=== PATIENT | male | born 1990 | race African-American/Black ===

== ENCOUNTER 2018-07-23 05:10 | Day surgery (SDC) | payer OTHER ==
[~2018-07-23] VITALS: Ht 170.2 cm; Wt 60.3 kg
[2018-07-23] VITALS (10 sets, daily range): BP systolic 96–140; BP diastolic 54–89
[~2018-07-23 05:10] MED LIST: ACETAMINOPHEN325 M1 ORAL
[2018-07-23] MEDS ORDERED: ceFAZolin 1gm IVPB IVPB ONE ×2 (06:00)
[2018-07-23] MEDS ORDERED: celeBREX 200mg Cap **SURGERY PATIENTS ONLY ORAL ONE (06:00)
[2018-07-23] MEDS ORDERED: oxyCONTIN 20mg tab ORAL ONE (06:00)
[2018-07-23] MEDS ORDERED: LR 1000ml 1,000 ML IVLG SCH (07:19)
--- NOTE | 2018-07-23 07:19 | Anethesia Preoperative Eval ---
Anesthesia Pre-op PMH/ROS General Date of Evaluation: Jul 23, 2018 Anesthesiologist: Kofi ASA Score: ASA 2 Mallampati Score Class I : Soft palate, uvula, fauces, pillars visible Class II: Soft palate, uvula, fauces visible Class III: Soft palate, base of uvula visible Class IV: Only hard plate visible Mallampati Classification: Class II Surgeon: Sher Diagnosis: Right knee derangement Surgical Procedure: Right knee arthrosocpy, possible ACL repair Anesthesia History: none Family History: no anesthesia problems Allergies: Coded Allergies: No Known Allergies (Unverified , 07/22/18) Medications: see eMAR Patient NPO?: Yes NPO Date: Jul 22, 2018 NPO Time: 22:00 Past Medical History Cardiovascular: Denies: HTN, CAD, [place], valve dz, arrhythmia, other Pulmonary: Denies: asthma, COPD, WAYNE, other Gastrointestinal/Genitourinary: Denies: GERD, CRI, ESRD, other Neurologic/Psychiatric: Reports: depression/anxiety - panic attack this morning ; Denies: dementia, CVA, TIA, other Endocrine: Denies: DM, hypothyroidism, steroids, other HEENT: Denies: cataract (L), cataract (R), glaucoma, MENOMINEE (L), MENOMINEE (R), other Hematology/Immune: Denies: anemia, DVT, bleeding disorder, other Musculoskeletal/Integumentary: Denies: OA, RA, DJD, DDD, edema, other PSxH Narrative: Denies Anesthesia Pre-op Phys. Exam Physician Exam Last Vital Signs Date Time Temp Pulse Resp B/P (MAP) Pulse Ox O2 Delivery O2 Flow Rate FiO2 07/23/18 05:45 98.2 88 20 139/75 100 Room Air Constitutional: other - moderately anxious Cardiovascular: RRR Respiratory: CTA Airway Exam Mallampati Score: Class II MO: full ROM: full Teeth: intact Anesthesia Pre-op A/P Labs see chart Studies Pre-op Studies: EKG - sr Risk Assessment & Plan Assessment: ASA II Plan: GA Status Change Before Surgery: No Pre-Antibiotics Drug: Lucila Bauer MD Jul 23, 2018 07:18
--- NOTE | 2018-07-23 07:26 | Pre-Procedure Note/Attestation ---
Pre-Procedure Note/Attestation Complete Prior to Procedure Planned Procedure: right Procedure Narrative: knee diagnostic arthroscopy, possible synovectomy, possible menisectomy, Indications for Procedure Pre-Operative Diagnosis: right knee acl sprain, possible chondral damage Attestation I attest that I discussed the nature of the procedure; its benefits; risks and complications; and alternatives (and the risks and benefits of such alternatives ), prior to the procedure, with the patient (or the patient's legal loan representative). I attest that, if there was a reasonable possibility of needing a blood transfusion, the patient (or the patient's legal loan representative) was given the [facility] standardized written summary, pursuant to the Yobany Lind Blood Safety Act ([place] Health and Safety Code # 1645, as amended). I attest that I re-evaluated the patient just prior to the surgery and that there has been no change in the patient's H&P, except as documented below: Reyes Olivarez MD Jul 23, 2018 07:26
--- NOTE | 2018-07-23 07:26 | Operative Note - PDOC ---
Operative Note Operative Note Pre-op Diagnosis: right knee acl sprain, possible chondral damage Procedure: see op report Post-op Diagnosis: same as pre-op plus Operative Findings: consistent w/pre-op dx studies Anesthesia: MAC Specimen: none Complications: none Condition: stable Estimated Blood Loss: none Implant(s) used?: No Reyes Olivarez MD Jul 23, 2018 07:26
[2018-07-23] MEDS ORDERED: Hydromorphone 0.5mg/0.5ml inj IVP PRN (07:30)
[2018-07-23] MEDS ORDERED: Metoclopramide 10mg/2ml Inj IVP PRN (07:30)
[2018-07-23] MEDS ORDERED: Midazolam 2mg/2ml Inj IVP PRN (07:30)
[2018-07-23] MEDS ORDERED: Ketorolac 30mg Inj IV PRN (07:30)
[2018-07-23] MEDS ORDERED: fentaNYL 100 mcg/2 mL IV PRN (07:30)
[2018-07-23] MEDS ORDERED: DiphenhydrAMINE 50mg/ml Inj IVP PRN (07:30)
[2018-07-23] MEDS ORDERED: LORazepam Inj 2mg/ml 1ml IV PRN (07:30)
[2018-07-23] MEDS ORDERED: Lidocaine 1% MPF 10mg/ml 5ml ONE (07:39)
[2018-07-23] MEDS ORDERED: Propofol 200mg/20ml IV ONE (07:39)
[2018-07-23] MEDS ORDERED: Midazolam 2mg/2ml Inj ONE (07:39)
[2018-07-23] MEDS ORDERED: fentaNYL 100 mcg/2 mL IV ONE (07:39)
[2018-07-23] MEDS ORDERED: EPINEPHrine 1mg/1ml Amp ONE (08:11)
[2018-07-23] MEDS ORDERED: Kenalog-40 1ml Vial ONE (08:11)
[2018-07-23] MEDS ORDERED: Morphine Sulfate PF 10 ML ONE (08:11)
[2018-07-23] MEDS ORDERED: Bupivacaine 0.25% Inj 30ml INJ ONE (08:12)
[2018-07-23] MEDS ORDERED: Ketorolac 30mg Inj ONE ×2 (08:12→08:34)
[2018-07-23] MEDS ORDERED: Lidocaine 1% 10mg/ml/Epi 0.005mg/ml 30ml vial INJ ONE (08:12)
[2018-07-23] MEDS ORDERED: Duramorph PF 10mg/10ml amp EPIDUR ONE (08:26)
[2018-07-23] MEDS ORDERED: NS Irrig 4000ml IRRIG ONE (08:26)
[2018-07-23] MEDS ORDERED: Dexamethasone 4mg/ml vial ONE (08:34)
--- NOTE | 2018-07-23 09:10 | Immediate Post-Op Evaluation ---
Immediate Post-Op Evalulation Immediate Post-Op Evalulation Procedure: Right knee arthroscopy Date of Evaluation: Jul 23, 2018 Time of Evaluation: 09:12 IV Fluids: 600 Blood Products: 0 Estimated Blood Loss: min Urinary Output: 0 Blood Pressure Systolic: 96 Blood Pressure Diastolic: 58 Pulse Rate: 70 Respiratory Rate: 17 O2 Sat by Pulse Oximetry: 100 Temperature (Fahrenheit): 97.2 Pain Score (1-10): 0 Nausea: No Vomiting: No Complications 0 Patient Status: awake, reacts, patent, none Hydration Status: adequate Drug: Ancef 1g Given Within 1 Hr of Incision: Yes Lucila Mckeon MD Jul 23, 2018 09:10
--- NOTE | 2018-07-23 09:11 | 48 Hour Post Anesthesia Eval ---
Post Anesthesia Evaluation Procedure: Right knee arthroscopy Date of Evaluation: Jul 23, 2018 Airway: patent Nausea: No Vomiting: No Hydration Status: adequate Cardiopulmonary Status: at baseline Mental Status/LOC: patient returned to baseline Post-Anesthesia Complications: 0 Follow-up care needed: ready to discharge Lucila Mckeon MD Jul 23, 2018 09:11
[2018-07-23] MEDS ORDERED: Tylenol #3 tab (300mg/30mg) ORAL PRN (14:01)
[2018-07-23] MEDS ORDERED: HYDROmorphone 1mg/ml Carpuject SUBQ PRN (14:01)
[2018-07-23] MEDS ORDERED: HYDROcodone/Acetamin 5/325 tab ORAL PRN (14:01)
[2018-07-23] MEDS ORDERED: D5 1/2NS 1,000 ML IV SCH (14:01)
--- NOTE | 2018-07-23 18:45 | Operative Note - Dictated ---
DATE OF OPERATION: 07/23/2018 PREOPERATIVE DIAGNOSES: 1. Right ACL sprain. 2. Possible internally rotated right knee secondary to possible chondral versus hypertrophic synovial tissue. POSTOPERATIVE DIAGNOSES: 1. Right ACL sprain. 2. Possible internally rotated right knee secondary to possible chondral versus hypertrophic synovial tissue. 3. Grade 1 chondral damage, anterior medial femoral condyle. PROCEDURE: 1. Right knee diagnostic arthroscopy. 2. Right knee synovectomy/excision of the fat pad medial and lateral patellofemoral compartment. SURGEON: Reyes Olivarez M.D. ANESTHESIA: MAC. INDICATION FOR PROCEDURE: The patient is a 27-year-old gentleman, who sustained an injury to his right knee. He had MRI, which showed some bone contusion in the medial femoral condyle with signal change along the ACL consistent with a sprain. He had continued pain, mechanical symptoms, elected to undergo right knee diagnostic arthroscopy, possible synovectomy, chondroplasty, ACL reconstruction. Risks, limitations, expectations, complication of the procedure were discussed in detail. All questions addressed. DESCRIPTION OF PROCEDURE: After informed consent was obtained, the patient was brought to the operating room, and placed under monitored anesthesia control. Right leg was prepped and draped in a sterile manner. Time-out was performed. Examination under anesthesia was performed. Anterior drawer test was negative. Reverse pivot shift was negative. Inferolateral stab incision was then made. Trocar was introduced into the knee joint. However, there was hypertrophic fat pad in patellofemoral compartment. No significant chondral damage in the patellofemoral compartment. Medial gutter was free of any loose body. Medial compartment was entered. Medial working portal was established. The meniscus was probed. There was an area along the anterior and medial aspect of the condyle, which had some grade 1 chondral damage, but no gross chondral flaps. Medial portal synovectomy, excision of the fat pad along the anterior compartment, medial compartment, intercondylar notch, lateral compartment was performed. Once that was completed, the ACL was probed. The femoral insertion was intact. The tibial insertion was intact. There was some longitudinal tears along the axis of the ligament. Lateral compartment was then entered free from the meniscal chondral damage. Once that was completed, the camera was placed in the patellofemoral compartment. Excision of the fat pad and synovectomy was completed. Once that was done, the instruments were removed. Portal sites were closed with 3-0 Monocryl sutures. Steri-Strips and a sterile dressing were applied. The patient was awoken and taken to recovery room with stable signs. ESTIMATED BLOOD LOSS: None. COMPLICATIONS: None. SPECIMENS: None. IMPLANTS: None. Reyes Olivarez M.D. DR: LUIS ALFREDO JOB#: [id number] CC: [email or web address]
== END 2018-07-23 10:45 | disposition home or self-care (01) ==
LOC: SUR 05:10
DX: S83.511A Sprain of anterior cruciate ligament of right knee, initial encounter (principal); F41.9 Anxiety disorder, unspecified; F32.9 Major depressive disorder, single episode, unspecified; X58.XXXA Exposure to other specified factors, initial encounter; Y92.9 Unspecified place or not applicable
CPT/HCPCS: 29876; J0171; J0690; J1100; J1885; J2250; J2274; J2405; J2704; J3010; J3301; J3490; 94003; 94150